=== PATIENT | female | born 1985 | race Caucasian/White ===

== ENCOUNTER 2017-06-10 08:28 | Emergency (ER) | payer MEDICAID ==
[~2017-06-10] VITALS: Ht 157.5 cm; Wt 56.0 kg
[2017-06-10] MEDS ORDERED: HYDR12.529 PO (09:08)
[2017-06-10] MEDS ORDERED: CLON0.5T PO (09:08)
[2017-06-10] MEDS ORDERED: CLON0.1T PO (09:08)
[2017-06-10] MEDS ORDERED: AMLO2.5T45 PO (09:08)
[2017-06-10 09:14] VITALS: BP 119/78
[2017-06-10 10:33] LABS: BASOPHILS % 0.5 % (0.0-2.0); EOSINOPHILS % 0.4 % (0.0-5.0); HEMATOCRIT. 48.9 % (36.0-48.0); LYMPHOCYTES % 28.9 % (20.0-50.0); MEAN CORPUSCULAR HEMOGLOBIN 32.4 pg (28.0-32.0); MEAN CORPUSCULAR VOLUME 93.1 fL (81.0-99.0); MEAN PLATELET VOLUME 7.9 fl (7.4-10.4); NEUTROPHILS % 62.2 % (40.0-76.0); PLATELET 304 x1000/uL (130-400); RED BLOOD CELL COUNT 5.25 mill/uL (4.2-5.4); RED CELL DISTRIBUTION WIDTH 14.5 % (11.6-14.6)
[2017-06-10 10:45] LABS: D-DIMER < 0.19 mg/L FEU (<0.50); PROTHROMBIN TIME 10.5 sec (9.4-11.6)
[2017-06-10 10:52] LABS: CARBON DIOXIDE 26 mEq/L (21-32); CHLORIDE 103 mEq/L (98-107); TROPONIN I < 0.02 ng/mL (0.00-0.04)
[2017-06-10 11:28] LABS: HCG SCREEN NEGATIVE
== END 2017-06-10 12:24 | disposition left against medical advice (07) ==
LOC: ER 08:56
DX: R07.9 Chest pain, unspecified (principal); R55 Syncope and collapse; I10 Essential (primary) hypertension; F17.200 Nicotine dependence, unspecified, uncomplicated; Z91.040 Latex allergy status
CPT/HCPCS: 36415; 71010; 80053; 83880; 84484; 84703; 85025; 85379; 85610; 93005; 99285; 99406; Z7610